=== PATIENT | female | born 1930 | race Two or more races ===

== ENCOUNTER → 2016-05-07 | Outpatient (POV) | LOC: OUTPT 00:01 | PROVIDERS: ATTEND Otolaryngology | DX: H91.90 Unspecified hearing loss, unspecified ear (principal) | CPT/HCPCS: 92557 ==

== ENCOUNTER 2017-12-23 13:06 | Outpatient (CLI) | END 2017-12-23 13:07 | disposition home or self-care (01) | LOC: RHC-LAB 13:06 | PROVIDERS: ATTEND Otolaryngology | DX: H66.92 Otitis media, unspecified, left ear (principal) | CPT/HCPCS: 87070; 87186 ==